=== PATIENT | female | born 1950 | race Hispanic/Latino ===

== ENCOUNTER 2017-05-25 07:57 | Outpatient (CLI) | payer MEDICARE ==
[2017-05-25 09:03] LABS: Blood Urea Nitrogen 18 mg/dL (7-17)
--- NOTE | 2017-05-25 12:06 | Nuclear Medicine Report ---
BONE SCAN: History: Bone pain, unspecified type of carcinoma. Comparison: CT neck, chest, abdomen and pelvis performed the same day. After injection of isotope, gamma camera imaging of the bony system was done. There is a normal uptake of isotope throughout the bony structures without areas of significantly increased or decreased uptake. There is moderate degenerative uptake in the right knee. Normal uptake in the urinary system is seen. IMPRESSION: No evidence for metastatic disease to the bones. No evidence for acute injury. Osteoarthritis most prominent in the right knee.
--- NOTE | 2017-05-25 14:17 | Cat Scan Report ---
CT NECK WITH CONTRAST: HISTORY: Unspecified type of carcinoma. TECHNIQUE: Helical CT following IV contrast. Sagittal and coronal reformatted images. FINDINGS: The parotid and submandibular glands are normal. The carotid sheaths are intact. There is no evidence of adenopathy within the neck. The thyroid gland is normal. The glottic structures are normal. The airway is patent. Strap musculature is unremarkable. Hyoid bone and thyroid cartilage are intact. IMPRESSION: Unremarkable CT neck.
--- NOTE | 2017-05-25 14:19 | Cat Scan Report ---
CT CHEST WITH CONTRAST: HISTORY: Unspecified type of carcinoma. COMPARISON: none. TECHNIQUE: Helical CT in 1.25mm intervals following IV contrast. Sagittal and coronal reformatted images. FINDINGS: Thyroid gland: Normal. Tracheobronchial tree: Normal. Esophagus: Normal. Heart: Normal. Pericardium: Normal. Mediastinum: Normal. Lung Lawson: Mild to moderate centrilobular and paraseptal emphysematous changes are identified in both lungs. No evidence for nodule or infiltrate. Pleural Spaces: Normal. Musculoskeletal: No suspicious bony lesion. Surgical clips are noted in the central breast tissue bilaterally, correlate with history. IMPRESSION: Mild to moderate emphysema. No evidence for recurrent or metastatic disease to the chest.
--- NOTE | 2017-05-25 14:22 | Cat Scan Report ---
CT ABDOMEN PELVIS WITH CONTRAST: HISTORY: Unspecified type of carcinoma. COMPARISON: none. TECHNIQUE: Helical CT in 1.25mm intervals following IV contrast. Sagittal and coronal reconstructions. FINDINGS: Liver: Normal. Biliary system: Normal. Pancreas: Normal. Spleen: Normal. Kidneys/ureters/bladder: Normal. Adrenal glands: Normal. Aorta: Normal. Intestines: Normal. Appendix: Normal. Pelvic viscera: Hysterectomy. The ovaries are unremarkable. Ascites: None. Adenopathy: None. Musculoskeletal: No suspicious bony lesion or fracture. Mild lumbar spondylosis. IMPRESSION: Unremarkable CT scan of the abdomen and pelvis with contrast. No evidence for recurrent or metastatic disease to the abdomen/pelvis.
== END 2017-05-25 07:58 | disposition home or self-care (01) ==
LOC: NM 07:57
PROVIDERS: ATTEND Internal Medicine Hematology & Oncology
DX: D05.90 Unspecified type of carcinoma in situ of unspecified breast (principal); R22.1 Localized swelling, mass and lump, neck; M47.896 Other spondylosis, lumbar region; M89.9 Disorder of bone, unspecified; Z90.710 Acquired absence of both cervix and uterus
CPT/HCPCS: 36415; 70491; 71260; 74177; 78306; 82565; 84520; A9503; Q9967